=== PATIENT | female | born 1980 | race Caucasian/White ===

== ENCOUNTER 2021-06-27 18:36 | Emergency (ER) | payer BC ==
[~2021-06-27] VITALS: Ht 152.4 cm; Wt 63.5 kg
[2021-06-27] MEDS ORDERED: IBUPROFEN600 MG PO (18:57)
[2021-06-27] MEDS ORDERED: CIPRODEX OTIC7.5 ML RIGHT EAR (18:57)
[2021-06-27] MEDS ORDERED: IBUPROFEN 600 MG TAB PO STA (18:59)
[2021-06-27 19:09] VITALS: BP 122/90
[2021-06-27] MEDS ORDERED: IBUPROFEN 600 MG TAB ONE (19:12)
== END 2021-06-27 19:09 | disposition home or self-care (01) ==
LOC: FSED 18:50
DX: H60.91 Unspecified otitis externa, right ear (principal); H65.91 Unspecified nonsuppurative otitis media, right ear; R50.9 Fever, unspecified
CPT/HCPCS: 99282

== ENCOUNTER 2022-02-16 12:09 | Emergency (ER) | payer BC ==
[~2022-02-16] VITALS: Ht 152.4 cm; Wt 61.2 kg
[~2022-02-16 12:09] MED LIST: CALCIUM ACETAT667 M1 PO; CIPRODEX OTIC7.5 ML RIGHT EAR; COQ-1030 MG PO; FIBER TABS625 MG PO; FISH OIL 1,0001 EACH PO; HAIR, SKIN AND1 EACH PO; IBUPROFEN600 MG PO; MAGNESIUM OXID400 MG PO; PROGESTERONE200 MG PO; VITAMIN D3 COM1 EACH PO
[2022-02-16 12:32] LABS: BASOPHILS % 0.3 % (0.0-1.0); EOSINOPHILS % 0.2 % (0.0-6.0); HEMATOCRIT 43.9 % (34.2-44.1); HEMOGLOBIN 14.4 g/dL (12.0-16.0); LYMPHOCYTES # (AUTO) 2.4 (1.0-3.2); LYMPHOCYTES % 27.4 % (18.0-39.1); MEAN CORPUSCULAR HEMOGLOBIN 30.6 pg (28-32); MEAN CORPUSCULAR HGB CONC 32.8 g/dL (31-35); MEAN CORPUSCULAR VOLUME 93.2 fL (81-99); MONOCYTES # (AUTO) 0.5 (0.2-0.8); MONOCYTES % 6.2 % (4.4-11.3); NEUTROPHILS # (AUTO) 5.7 (2.1-6.9); NEUTROPHILS % 65.7 % (38.7-80.0); PLATELET COUNT 325 x10e3/uL (140-360); RED BLOOD COUNT 4.71 x10e6/uL (3.6-5.1); RED CELL DISTRIBUTION WIDTH 11.5 % (11.7-14.4)
[2022-02-16 12:45] LABS: INR 0.9; PARTIAL THROMBOPLASTIN TIME 28.6 seconds (23.8-35.5)
[2022-02-16 12:54] LABS: ALBUMIN 4.9 g/dL (3.5-5.0); ALBUMIN/GLOBULIN RATIO 1.3 (0.8-2.0); ANION GAP 16.4 mmol/L (8-16); CALCIUM 9.3 mg/dL (8.4-10.2); CREATININE, SERUM 0.75 mg/dL (0.57-1.11); POTASSIUM 3.4 mmol/L (3.5-5.1)
[2022-02-16 13:00] LABS: CREATINE KINASE MB 0.5 ng/mL (0-5.0)
[2022-02-16] MEDS ORDERED: DIAZEPAM 2 MG TAB PO ONE (13:00)
[2022-02-16 15:15] VITALS: BP 118/79
== END 2022-02-16 15:22 | disposition home or self-care (01) ==
LOC: ER 12:13
DX: D32.0 Benign neoplasm of cerebral meninges (principal)
CPT/HCPCS: 36415; 70450; 71045; 80053; 82550; 82553; 84484; 85025; 85610; 85730; 93005; 99284

== ENCOUNTER 2022-02-22 08:38 | Outpatient (RCR) | payer BC | END 2022-03-03 | LOC: PT 08:38 | PROVIDERS: ATTEND Psychiatry & Neurology Clinical Neurophysiology | DX: H81.13 Benign paroxysmal vertigo, bilateral (principal); G89.29 Other chronic pain; R26.81 Unsteadiness on feet; M54.2 Cervicalgia ==

== ENCOUNTER 2022-08-24 03:10 | Emergency (ER) | payer BC ==
[~2022-08-24] VITALS: Ht 152.4 cm; Wt 57.2 kg
[2022-08-24] MEDS ORDERED: KETOROLAC TROMETHAMINE 30 MG/ML VIAL ONE (03:37)
[2022-08-24] MEDS ORDERED: SODIUM CHLORIDE 0.9% 1000ML 1,000 ML ONE (03:37)
[2022-08-24] MEDS ORDERED: ONDANSETRON HCL INJ 2MG/ML 2ML 2 MG/ML VIAL ONE (03:37)
[2022-08-24] MEDS ORDERED: FAMOTIDINE 20 MG/2 ML VIAL IV ONE (03:37)
[2022-08-24] MEDS ORDERED: FAMOTIDINE 20 MG/2 ML VIAL IV STA (03:50)
[2022-08-24] MEDS ORDERED: ONDANSETRON HCL INJ 2MG/ML 2ML 2 MG/ML VIAL IV STA (03:50)
[2022-08-24] MEDS ORDERED: KETOROLAC TROMETHAMINE 30 MG/ML VIAL IV STA (03:50)
[2022-08-24] MEDS ORDERED: SODIUM CHLORIDE 0.9% 1000ML 1,000 ML IV SCH (04:00)
[2022-08-24] MEDS ORDERED: IOPAMIDOL 370 MG/ML 100 ML INFUS..BTL INJ ONE (04:17)
[2022-08-24] MEDS ORDERED: SODIUM CHLORIDE 0.9% 500ML 500 ML ONE (05:34)
[2022-08-24] MEDS ORDERED: PROMETHAZINE HCL (IM) 25 MG/ML VIAL IM ONE (05:34)
[2022-08-24] MEDS ORDERED: DICYCLOMINE HCL 10 MG CAP ONE (05:36)
[2022-08-24] MEDS ORDERED: ONDANSETRON ODT4 MG PO (05:38)
[2022-08-24] MEDS ORDERED: DICYCLOMINE HCL20 MG PO (05:39)
[2022-08-24] MEDS ORDERED: DICYCLOMINE HCL 20 MG TAB PO ONE (05:45)
[2022-08-24 05:55] VITALS: BP 128/69; PULSE 90; RESP 18; TEMP 98.3; O2SAT 99
== END 2022-08-24 05:55 | disposition home or self-care (01) ==
LOC: FSED 03:15
DX: R11.2 Nausea with vomiting, unspecified (principal); K52.9 Noninfective gastroenteritis and colitis, unspecified; R10.30 Lower abdominal pain, unspecified; F32.A Depression, unspecified
CPT/HCPCS: 74177; 80048; 80076; 81003; 81025; 85025; 96374; 96375; 96376; 99284; J1885; J2405; J2550; J7030; J7040; Q9967

== ENCOUNTER → 2022-09-07 | Outpatient (CLI) | payer BC ==
[~2022-09-07] MED LIST changes: +DICYCLOMINE HCL20 MG PO; +ONDANSETRON ODT4 MG PO
== END ==
LOC: MAMMO 11:27
PROVIDERS: ATTEND Obstetrics & Gynecology
DX: Z12.31 Encounter for screening mammogram for malignant neoplasm of breast (principal)
CPT/HCPCS: 77067

== ENCOUNTER → 2022-09-21 | Outpatient (CLI) | payer BC ==
[2022-09-21 15:11] LABS: HEMATOCRIT 43.9 % (34.2-44.1); HEMOGLOBIN 15.1 g/dL (12.0-16.0); MEAN CORPUSCULAR VOLUME 88.5 fL (81-99); RED BLOOD COUNT 4.96 x10e6/uL (3.6-5.1)
[2022-09-21 15:12] LABS: BASOPHILS % 0.5 % (0.0-1.0); EOSINOPHILS # (AUTO) 0.1 (0.0-0.4); LYMPHOCYTES # (AUTO) 2.3 (1.0-3.2); LYMPHOCYTES % 27.5 % (18.0-39.1); MEAN CORPUSCULAR HEMOGLOBIN 30.4 pg (28-32); MEAN CORPUSCULAR HGB CONC 34.4 g/dL (31-35); MONOCYTES # (AUTO) 0.6 (0.2-0.8); MONOCYTES % 7.3 % (4.4-11.3); NEUTROPHILS # (AUTO) 5.2 (2.1-6.9); NEUTROPHILS % 63.5 % (38.7-80.0); PLATELET COUNT 303 x10e3/uL (140-360); RED CELL DISTRIBUTION WIDTH 12.3 % (11.7-14.4)
[2022-09-21 15:31] LABS: ALBUMIN 4.5 g/dL (3.5-5.0); ALBUMIN/GLOBULIN RATIO 1.4 (0.8-2.0); ANION GAP 14.1 mmol/L (8-16); CALCIUM 9.6 mg/dL (8.4-10.2); CREATININE, SERUM 0.72 mg/dL (0.57-1.11); POTASSIUM 4.1 mmol/L (3.5-5.1)
[2022-09-21 15:50] LABS: FERRITIN 40.94 ng/mL (4.63-204.00)
== END ==
LOC: LAB 14:40
PROVIDERS: ATTEND Psychiatry & Neurology Neurology
DX: D32.9 Benign neoplasm of meninges, unspecified (principal); D64.9 Anemia, unspecified; E55.9 Vitamin D deficiency, unspecified
CPT/HCPCS: 36415; 80053; 82306; 82607; 82728; 82746; 83540; 84466; 85025

== ENCOUNTER → 2022-09-30 | Outpatient (CLI) | payer BC | LOC: MAMMO 13:10 | PROVIDERS: ATTEND Obstetrics & Gynecology | DX: N64.89 Other specified disorders of breast (principal) ==